=== PATIENT | female | born 2000 | race African-American/Black ===

== ENCOUNTER 2022-07-22 12:51 | Emergency (ER) | payer OTHER ==
[2022-07-22] MEDS ORDERED: IBUPROFEN 600 MG TABLET (FP) PO ONE ×2 (12:54→12:56)
[2022-07-22 12:59] VITALS: BP 116/78; PULSE 92; RESP 16; TEMP 99; BMI 22.4
== END 2022-07-22 13:59 | disposition home or self-care (01) ==
LOC: FER 12:51
DX: S83.005A Unspecified dislocation of left patella, initial encounter (principal); W01.0XXA Fall on same level from slipping, tripping and stumbling without subsequent striking against object, initial encounter
CPT/HCPCS: 73560-TC-LT-FY; 99283-25